=== PATIENT | female | born 1985 | race Caucasian/White ===

== ENCOUNTER → 2017-04-13 | Outpatient (CLI) | payer OTHER ==
[~2017-04-13] MED LIST: BUSPAR; IBUPROFEN; NABUMETONE PO; ROBAXIN500 MG PO; VOLTAREN75 MG PO
--- NOTE | ~2017-04-13 | US5 ---
[facility] A Service of [facility] RADIOLOGY TEXT RESULTS PATIENT: MARELY GALVAN LOCATION: SG : 83 UNIT #: [id number] AGE: [address]: Jose Elias Ovalles MD SEX: F ORDER DR: [id number] [address] [address] [id number] O MR#: [id number] Acc #: [id number] NAME: MARELY GALVAN : 1985 SEX: F STUDY DATE/TIME: 04/13/2017 8:34 UNIT: SG ROOM: STUDY DESCRIPTION: US Abdominal Complete Attending Physician: Jose Elias Ovalles III, M.D. Referring Physician: Jose Elias Ovalles III, M.D. Ordering Physician: Jose Elias Ovalles III, M.D. Primary Care Physician: [facility] MEDICAL IMAGING REPORT This report is preliminary unless electronic signature is present. EXAM Abdominal ultrasound, complete, 04/13/2017. HISTORY Hepatitis C, abdominal discomfort and swelling on left side for 3 days. Observation for hepatocellular carcinoma and cirrhosis. FINDINGS The liver demonstrates a coarsened echotexture but no cystic or solid mass lesions were seen within the liver. The intra and extrahepatic bile ducts are not dilated. The gallbladder is normal with no evidence of cholelithiasis, wall thickening, or pericholecystic fluid. The common duct measures 3 mm. The pancreas and spleen are normal. The spleen measures 9.4 cm in greatest diameter. The visualized portions of the abdominal aorta and inferior vena cava are within normal limits. The kidneys are normal bilaterally. IMPRESSION Coarsened liver echotexture. Otherwise, negative abdominal ultrasound. Dictated by... Cedric Ferrell M.D. THIS IS AN ELECTRONICALLY VERIFIED REPORT Cedric Ferrell M.D. at 04/14/2017 7:20 AM FELICIA/kim TD: 04/13/2017 16:51 JOB #: [id number] [facility] A Service of [facility] RADIOLOGY TEXT RESULTS PATIENT: MARELY GALVAN LOCATION: [facility] #: [id number] : [birth year] UNIT #: [id number] AGE: [address]: Jose Elias Ovalles MD SEX: F ORDER DR: MEDICAL IMAGING REPORT Page 1 of 1
== END | disposition home or self-care (01) ==
LOC: SGUS 08:27
DX: B18.2 Chronic viral hepatitis C (principal)
CPT/HCPCS: 76700